=== PATIENT | female | born 2000 | race Caucasian/White ===

== ENCOUNTER 2021-04-06 15:43 | Emergency (ER) | payer OTHER ==
[~2021-04-06] VITALS: Ht 154.9 cm; Wt 54.4 kg
[2021-04-06] MEDS ORDERED: SODIUM CHLORIDE 0.9% 1,000 ML IVB ONE (16:00)
[2021-04-06 16:26] LABS: Basophils # (auto) 0 10 ^3/uL (0-0.2); Basophils % (auto) 0.2 % (0.0-2.0); Eosinophils # (auto) 0 10 ^3/uL (0-0.8); Eosinophils % (auto) 0.5 % (0.0-7.0); Hematocrit 39.3 % (36.0-46.0); Hemoglobin 13.4 g/dL (12.2-16.2); Lymphocytes # (auto) 1.1 10 ^3/uL (0.4-5.4); Lymphocytes % (auto) 12.3 % (10.0-50.0); Mean Corpuscular Hemoglobin 32.2 pg (28.0-32.0); Mean Corpuscular Volume 94.8 fL (80.0-100.0); Monocytes # (auto) 0.4 10 ^3/uL (0-1.3); Monocytes % (auto) 5.1 % (0.0-12.0); Neutrophils % (auto) 81.9 % (37.0-80.0); Nucleated Red Blood Cells % 0.1 %; Red Blood Cells 4.15 10^6/uL (4.0-5.20); Red Cell Distribution Width 13.5 % (11.8-14.3); White Blood Cell 8.6 10^3/uL (4.4-10.8)
[2021-04-06 16:49] LABS: Acetaminophen < 2.0 ug/mL (10-30); Salicylate < 1.7 mg/dL (2.8-20.0)
[2021-04-06 16:50] LABS: Albumin 4.1 g/dL (3.4-5.0); BUN/Creatinine Ratio 27.5; Potassium 4.4 mmol/L (3.5-5.1)
[2021-04-06 16:52] LABS: Bilirubin, Total 0.4 mg/dL (0.2-1.0); Total Protein 7.3 g/dL (6.4-8.2)
[2021-04-06 18:13] LABS: Amphetamine Screen, Urine NEGATIVE (NEGATIVE); Barbiturate Scree,Urine NEGATIVE (NEGATIVE); Benzodiazephine Screen, Urine NEGATIVE (NEGATIVE); Cannabinoid Screen, Urine POSITIVE (NEGATIVE); Cocaine Screen, Urine NEGATIVE (NEGATIVE); Opiate Scree,Urine NEGATIVE (NEGATIVE); Phencyclidine Screen, Urine NEGATIVE (NEGATIVE)
[2021-04-06] MEDS ORDERED: ONDANSETRON HCL 4 MG/2 ML VIAL IV ONE (18:45)
[2021-04-07] MEDS ORDERED: ACETAMINOPHEN 325 MG TAB PO ONE ×3 (09:45→17:45)
[2021-04-07 20:22] VITALS: BP 113/66
== END 2021-04-06 17:12 | disposition short-term general hospital (02) ==
LOC: EDBD 15:43 → ER 15:43
DX: T43.212A Poisoning by selective serotonin and norepinephrine reuptake inhibitors, intentional self-harm, initial encounter (principal); F17.210 Nicotine dependence, cigarettes, uncomplicated; F12.10 Cannabis abuse, uncomplicated; F15.10 Other stimulant abuse, uncomplicated; F14.10 Cocaine abuse, uncomplicated; Y92.89 Other specified places as the place of occurrence of the external cause
CPT/HCPCS: 36415; 80053; 80307; 80320; 80329; 81025; 85025; 87426; 93005; 96361; 96374; 99285; J2405; J7030

== ENCOUNTER 2021-06-21 09:55 | Emergency (ER) | payer OTHER ==
[~2021-06-21] VITALS: Ht 152.4 cm; Wt 52.2 kg
[2021-06-21] MEDS ORDERED: ONDANSETRON HCL 4 MG/2 ML VIAL IV ONE (10:30)
[2021-06-21 10:44] LABS: Basophils # (auto) 0 10 ^3/uL (0-0.2); Basophils % (auto) 0.2 % (0.0-2.0); Eosinophils # (auto) 0 10 ^3/uL (0-0.8); Hematocrit 45.9 % (36.0-46.0); Hemoglobin 15.6 g/dL (12.2-16.2); Lymphocytes # (auto) 0.8 10 ^3/uL (0.4-5.4); Mean Corpuscular Hgb Conc. 33.9 g/dL (32.0-36.0); Mean Corpuscular Volume 94.4 fL (80.0-100.0); Monocytes # (auto) 0.4 10 ^3/uL (0-1.3); Monocytes % (auto) 3.8 % (0.0-12.0); Neutrophils # (auto) 8.3 10 ^3/uL (1.6-8.6); Red Blood Cells 4.86 10^6/uL (4.0-5.20); Red Cell Distribution Width 13.2 % (11.8-14.3); White Blood Cell 9.4 10^3/uL (4.4-10.8)
[2021-06-21] MEDS ORDERED: SODIUM CHLORIDE 0.9% 1,000 ML IV ONE (10:45)
[2021-06-21 11:29] LABS: Albumin 4.6 g/dL (3.4-5.0); Anion Gap 11 (5-15); Blood Urea Nitrogen 17 mg/dL (7-18); Calcium 9.9 mg/dL (8.5-10.1); Carbon Dioxide 20 mmol/L (21-32); Chloride 104 mmol/L (98-107); Glucose 98 mg/dL (74-106); Potassium 3.9 mmol/L (3.5-5.1); Sodium 135 mmol/L (136-145)
[2021-06-21 11:35] LABS: Alanine Aminotransferase 18 U/L (13-56); Alkaline Phosphatase 75 U/L (45-117); Aspartate Aminotransferase 19 U/L (15-37); BUN/Creatinine Ratio 21.3; Bilirubin, Total 0.6 mg/dL (0.2-1.0); GFR African American 118 mL/min; GFR Non-African American 97 mL/min; Total Protein 9.1 g/dL (6.4-8.2)
[2021-06-21 12:57] LABS: Urine Bacteria FEW /hpf (None Seen); Urine Blood Negative /uL (Negative); Urine Mucus FEW (None Seen); Urine Specific Gravity 1.032 (1.001-1.035); Urine WBC 63 /hpf (0 - 5)
[2021-06-21] MEDS ORDERED: CEPH-509 PO (14:31)
[2021-06-21 14:47] VITALS: BP 116/55
[2021-06-21 15:13] LABS: Amphetamine Screen, Urine POSITIVE (NEGATIVE); Barbiturate Scree,Urine NEGATIVE (NEGATIVE); Benzodiazephine Screen, Urine NEGATIVE (NEGATIVE); Cannabinoid Screen, Urine POSITIVE (NEGATIVE); Cocaine Screen, Urine NEGATIVE (NEGATIVE); Opiate Scree,Urine NEGATIVE (NEGATIVE); Phencyclidine Screen, Urine NEGATIVE (NEGATIVE)
== END 2021-06-21 14:28 | disposition home or self-care (01) ==
LOC: ER 09:55
DX: O26.891 Other specified pregnancy related conditions, first trimester (principal); O21.9 Vomiting of pregnancy, unspecified; O99.321 Drug use complicating pregnancy, first trimester; F12.10 Cannabis abuse, uncomplicated; F15.10 Other stimulant abuse, uncomplicated; F14.10 Cocaine abuse, uncomplicated; Z3A.01 Less than 8 weeks gestation of pregnancy
CPT/HCPCS: 36415; 76801; 76817; 80053; 80307; 81001; 84484; 84702; 85025; 96361; 96374; 99285; J2405; J7030

== ENCOUNTER → 2023-10-11 | Outpatient (CLI) | payer MEDICAID, OTHER ==
[~2023-10-11] MED LIST: CEPH-509 PO
[2023-10-11 10:47] LABS: Basophils # (auto) 0 10 ^3/uL (0-0.2); Basophils % (auto) 0.5 % (0.0-2.0); Eosinophils # (auto) 0.1 10 ^3/uL (0-0.8); Eosinophils % (auto) 0.6 % (0.0-7.0); Hematocrit 41.8 % (36.0-46.0); Hemoglobin 14.2 g/dL (12.2-16.2); Lymphocytes # (auto) 2.4 10 ^3/uL (0.4-5.4); Lymphocytes % (auto) 26.1 % (10.0-50.0); Mean Corpuscular Hemoglobin 32.1 pg (28.0-32.0); Mean Corpuscular Hgb Conc. 33.9 g/dL (32.0-36.0); Mean Corpuscular Volume 94.7 fL (80.0-100.0); Monocytes # (auto) 0.6 10 ^3/uL (0-1.3); Monocytes % (auto) 6.1 % (0.0-12.0); Neutrophils # (auto) 6.2 10 ^3/uL (1.6-8.6); Neutrophils % (auto) 66.7 % (37.0-80.0); Red Blood Cells 4.42 10^6/uL (4.0-5.20); Red Cell Distribution Width 13.3 % (11.8-14.3); White Blood Cell 9.3 10^3/uL (4.4-10.8)
[2023-10-11 12:00] LABS: Amphetamine Screen, Urine Neg (NEGATIVE)
[2023-10-11 12:01] LABS: Barbiturate Scree,Urine Neg (NEGATIVE)
[2023-10-11 12:02] LABS: Benzodiazephine Screen, Urine Neg (NEGATIVE); Cocaine Screen, Urine Neg (NEGATIVE); Opiate Scree,Urine Neg (NEGATIVE); Phencyclidine Screen, Urine Neg (NEGATIVE)
[2023-10-11 12:03] LABS: Cannabinoid Screen, Urine Neg (NEGATIVE)
[2023-10-11 12:04] LABS: Albumin 4.4 g/dL (3.2-4.8); Alkaline Phosphatase 44 U/L (46-116); Anion Gap 8 (5-15); Aspartate Aminotransferase 11 U/L (13-40); BUN/Creatinine Ratio 15.6 (10.0-20.0); Blood Urea Nitrogen 7 mg/dL (9-23); Carbon Dioxide 23 mmol/L (20-30); Chloride 103 mmol/L (98-107); Glucose 83 mg/dL (74-106); LDL Cholesterol 119 mg/dL (< 100); Sodium 134 mmol/L (136-145); Triglycerides 115 mg/dL (< 150)
[2023-10-11 12:05] LABS: Bilirubin, Total 0.3 mg/dL (0.2-1.0); Cholesterol 171 mg/dL (< 200); HDL Cholesterol 54 mg/dL (40-59); Total Protein 6.9 g/dL (5.7-8.2)
[2023-10-11 12:07] LABS: Thyroid Stimulating Hormone 1.76 uIU/mL (0.55-4.78)
[2023-10-11 12:09] LABS: Alanine Aminotransferase < 9 U/L (7-40)
[2023-10-11 12:15] LABS: Beta HCG, Quantitative > 200000.0 mIU/mL (1.5-4.2)
[2023-10-12 07:07] LABS: RPR Non Reactive (Non Reactive)
[2023-10-12 10:07] LABS: Varicella Zoster IgG Antibody 736 index (Immune >165)
[2023-10-12 12:06] LABS: Chlamydia Trachomatis, NAA Negative (Negative); Neisseria gonorrhoeae, NAA Negative (Negative)
[2023-10-14 04:06] LABS: QuantiFERON-TB Gold Plus Negative (Negative)
== END | disposition home or self-care (01) ==
LOC: LAB 10:11
PROVIDERS: ATTEND Obstetrics & Gynecology
DX: Z34.80 Encounter for supervision of other normal pregnancy, unspecified trimester (principal); Z31.430 Encounter of female for testing for genetic disease carrier status for procreative management; Z36.0 Encounter for antenatal screening for chromosomal anomalies; Z3A.00 Weeks of gestation of pregnancy not specified; N39.0 Urinary tract infection, site not specified
CPT/HCPCS: 36415; 80053; 80061; 80307; 83036; 84439; 84443; 84702; 85025; 86592; 86703; 86787; 86850; 86900; 86901; 87086; 87340; 87902

== ENCOUNTER → 2024-01-22 | Outpatient (CLI) | payer MEDICAID ==
[2024-01-22 07:31] LABS: Basophils # (auto) 0 10 ^3/uL (0-0.2); Basophils % (auto) 0.4 % (0.0-2.0); Eosinophils # (auto) 0.1 10 ^3/uL (0-0.8); Hematocrit 37.6 % (36.0-46.0); Hemoglobin 12.9 g/dL (12.2-16.2); Lymphocytes # (auto) 1.7 10 ^3/uL (0.4-5.4); Lymphocytes % (auto) 21.5 % (10.0-50.0); Mean Corpuscular Hemoglobin 33.9 pg (28.0-32.0); Mean Corpuscular Hgb Conc. 34.3 g/dL (32.0-36.0); Mean Corpuscular Volume 98.8 fL (80.0-100.0); Monocytes # (auto) 0.6 10 ^3/uL (0-1.3); Monocytes % (auto) 7.3 % (0.0-12.0); Neutrophils # (auto) 5.5 10 ^3/uL (1.6-8.6); Neutrophils % (auto) 69.8 % (37.0-80.0); Platelet Count (auto) 219 10^3/uL (140-450); White Blood Cell 7.9 10^3/uL (4.4-10.8)
[2024-01-22 07:41] LABS: Albumin 4.2 g/dL (3.2-4.8); Alkaline Phosphatase 55 U/L (46-116); Anion Gap 6 (5-15); Aspartate Aminotransferase 10 U/L (13-40); BUN/Creatinine Ratio 10.4 (10.0-20.0); Blood Urea Nitrogen 5 mg/dL (9-23); Calcium 9.3 mg/dL (8.7-10.4); Carbon Dioxide 23 mmol/L (20-31); Chloride 106 mmol/L (98-107); Glucose 83 mg/dL (74-106); Sodium 135 mmol/L (136-145); Total Protein 6.6 g/dL (5.7-8.2)
[2024-01-22 07:44] LABS: Alanine Aminotransferase < 9 U/L (7-40)
[2024-01-22 07:57] LABS: Bilirubin, Total 0.3 mg/dL (0.2-1.0)
[2024-01-23 07:07] LABS: RPR Non Reactive (Non Reactive)
[2024-01-24 02:06] LABS: Chlamydia Trachomatis, NAA Negative (Negative); Neisseria gonorrhoeae, NAA Negative (Negative)
== END | disposition home or self-care (01) ==
LOC: LAB 06:14
PROVIDERS: ATTEND Obstetrics & Gynecology
DX: Z34.80 Encounter for supervision of other normal pregnancy, unspecified trimester (principal); Z3A.00 Weeks of gestation of pregnancy not specified
CPT/HCPCS: 36415; 80053; 82951; 83036; 85025; 86592; 86850; 86900; 86901

== ENCOUNTER 2024-02-11 08:42 | Emergency (ER) | payer MEDICAID ==
[~2024-02-11] VITALS: Ht 152.4 cm; Wt 75.0 kg
[2024-02-11 09:07] VITALS: RESP 20
[2024-02-11] MEDS: ACETAMINOPHEN 325 MG TAB PO ONE (09:08)
[2024-02-11 09:46] LABS: Alanine Aminotransferase 11 U/L (7-40); Albumin 4.2 g/dL (3.2-4.8); Alkaline Phosphatase 69 U/L (46-116); Anion Gap 6 (5-15); Aspartate Aminotransferase 14 U/L (13-40); BUN/Creatinine Ratio 15.6 (10.0-20.0); Bilirubin, Total 0.3 mg/dL (0.2-1.0); Blood Urea Nitrogen 7 mg/dL (9-23); Calcium 9.7 mg/dL (8.7-10.4); Carbon Dioxide 22 mmol/L (20-31); Chloride 108 mmol/L (98-107); Glucose 89 mg/dL (74-106); Potassium 3.8 mmol/L (3.5-5.1); Sodium 136 mmol/L (136-145); Total Protein 7.1 g/dL (5.7-8.2)
[2024-02-11] MEDS: ALBUTEROL SULF 2.5 MG/0.5ML(0.5%) NEB SOLN NEB ONE (09:51)
[2024-02-11 10:53] LABS: Basophils # (auto) 0 10 ^3/uL (0-0.2); Basophils % (auto) 0.4 % (0.0-2.0); Eosinophils # (auto) 0.2 10 ^3/uL (0-0.8); Eosinophils % (auto) 1.7 % (0.0-7.0); Hematocrit 38.4 % (36.0-46.0); Lymphocytes # (auto) 1.7 10 ^3/uL (0.4-5.4); Lymphocytes % (auto) 16.4 % (10.0-50.0); Mean Corpuscular Hemoglobin 33.3 pg (28.0-32.0); Mean Corpuscular Hgb Conc. 33.8 g/dL (32.0-36.0); Mean Corpuscular Volume 98.7 fL (80.0-100.0); Monocytes # (auto) 0.7 10 ^3/uL (0-1.3); Monocytes % (auto) 6.8 % (0.0-12.0); Neutrophils # (auto) 7.8 10 ^3/uL (1.6-8.6); Neutrophils % (auto) 74.7 % (37.0-80.0); Platelet Count (auto) 238 10^3/uL (140-450); Red Blood Cells 3.89 10^6/uL (4.0-5.20); Red Cell Distribution Width 13.1 % (11.8-14.3); White Blood Cell 10.5 10^3/uL (4.4-10.8)
[2024-02-11 12:46] LABS: COVID19 ANTIGEN SOFIA FIA NEGATIVE (NEGATIVE)
[2024-02-11 13:10] VITALS: BP 125/76; PULSE 102; RESP 17; TEMP 97.7; O2SAT 95
[2024-02-11] MEDS ORDERED: ACET650T12 PO (13:21)
== END 2024-02-11 13:46 | disposition home or self-care (01) ==
LOC: ER 08:42
DX: O26.893 Other specified pregnancy related conditions, third trimester (principal); R05.9 Cough, unspecified; R06.02 Shortness of breath; Z3A.30 30 weeks gestation of pregnancy; Z87.891 Personal history of nicotine dependence; Z79.899 Other long term (current) drug therapy; Z20.822 Contact with and (suspected) exposure to COVID-19
CPT/HCPCS: 36415; 71045; 80053; 84484; 87426; 93005; 94640

== ENCOUNTER 2024-03-26 09:08 | Observation (INO) | payer MEDICAID ==
[~2024-03-26 09:08] MED LIST changes: +ACET650T12 PO
--- NOTE | 2024-03-26 10:20 | DVH ---
BIOPHYSICAL PROFILE HISTORY: Decreased movement TECHNIQUE: Multiple transabdominal real-time grayscale sonographic images through the gravid uterus of the fetus with duplex Doppler color flow and M-mode spectral analysis FINDINGS: BIOPHYSICAL PROFILE: breathing score: 2 movement score: 2 tone score: 2 Quantitative CHRISTIAN score: 2 (CHRISTIAN: 12.4 Cm.) Total score: 8/8 Single live fetus in cephalic presentation. heart rate 142 beats per minute. Posterior placenta without previa or abruption IMPRESSION: 1. Biophysical profile score: 8/8 HS:Y
--- NOTE | 2024-03-26 10:34 | DVHDS2 ---
Physician Discharge Progress N Final Diagnosis: cramping Operations or Procedures: Operations or Procedures nst,sono Condition on Discharge: Good Disposition: Home Discharge Instructions: Diet: Regular Activity: No Restrictions, As Tolerated Follow Up/Referral: Follow up as scheduled with Dr. Galeano on SundayMarch 31. Medications: na Follow Up Care: Specialist: 1w Discharge Statement: "Patient was advised to return to the ER or call 911 if any headaches, dizziness, shortness of breath, chest pain, abdominal pain, bleeding, fevers, or worsening of medical condition. Patient was counseled about treatment plan, medications, possible side effects, patientverbalized understanding. All questions were answered to the best of my ability. This discharge took greater then 30 minutes in planning, reviewing documentation, counseling the patient, and discussing with other team members." CALEB SON DO Mar 26, 2024 10:34
== END 2024-03-26 10:45 | disposition home or self-care (01) ==
LOC: LDRP 09:08 → UNDOADMOB 09:08 → LDRP 09:29
PROVIDERS: ADMIT Obstetrics & Gynecology; ATTEND Obstetrics & Gynecology
DX: O36.8130 Decreased fetal movements, third trimester, not applicable or unspecified (principal); O21.2 Late vomiting of pregnancy; O26.892 Other specified pregnancy related conditions, second trimester; R51.9 Headache, unspecified; H53.8 Other visual disturbances; Z98.890 Other specified postprocedural states; Z79.899 Other long term (current) drug therapy; Z3A.36 36 weeks gestation of pregnancy
CPT/HCPCS: 59025; 76818; 81002; 94760; G0378

== ENCOUNTER 2024-04-07 09:02 | Observation (INO) | payer MEDICAID ==
[~2024-04-07] VITALS: Ht 152.4 cm; Wt 79.4 kg
--- NOTE | 2024-04-07 10:31 | DVH ---
Procedure: US BIOPHYSICAL PROFILE 04/07/2024 09:47 AM Indication: Leaking of fluid Comparison: US BIOPHYSICAL PROFILE on DOS: 03/26/24 Technique: Sonogram of gravid uterus utilizing grayscale and color techniques. FINDINGS: Single living intrauterine gestation. Presentation: Cephalic Placenta: Posterior, grade 2 with no evidence for previa or abruption heart rate: 140 bpm CHRISTIAN: 9.6 cm, DVP: 6.6 cm Maternal cervix: Not visualized Biophysical Profile: breathing score: 2 movement score: 2 tone: 2 Quantitative CHRISTIAN score: 2 Total score: 8/8 IMPRESSION: 1. Single living as above. 2. Biophysical profile score: 8/8.
--- NOTE | 2024-04-07 10:55 | DVHDS2 ---
Physician Discharge Progress N Final Diagnosis: Term IUP 38 wk, SROM ruled out Operations or Procedures: Operations or Procedures NST/BPP/CHRISTIAN all WNL CHRISTIAN 9.6 cm Fern test neg, no pooling, nitrazine neg Condition on Discharge: Stable Disposition: Home Discharge Instructions: Diet: Regular Activity: Light activity Follow Up/Referral: as scheduled in OB clinic 1x/week until delivered Medications: N/A Follow Up Care: Discharge Statement: "Patient was advised to return to the ER or call 911 if any headaches, dizziness, shortness of breath, chest pain, abdominal pain, bleeding, fevers, or worsening of medical condition. Patient was counseled about treatment plan, medications, possible side effects, patientverbalized understanding. All questions were answered to the best of my ability. This discharge took greater then 30 minutes in planning, reviewing documentation, counseling the patient, and discussing with other team members." KAYLEE ARRINGTON DO Apr 07, 2024 10:55
[2024-04-07 11:23] LABS: Fern Testing Negative
== END 2024-04-07 11:43 | disposition home or self-care (01) ==
LOC: UNDOADMOB 09:02 → LDRP 09:02 → UNDODISOB 11:43
PROVIDERS: ADMIT Obstetrics & Gynecology; ATTEND Obstetrics & Gynecology
DX: O62.9 Abnormality of forces of labor, unspecified (principal); Z3A.38 38 weeks gestation of pregnancy; Z79.899 Other long term (current) drug therapy; Z98.890 Other specified postprocedural states
CPT/HCPCS: 59025; 76818; 81002; 94760; G0378; Q0114

== ENCOUNTER 2024-04-11 08:52 | Observation (INO) | payer MEDICAID ==
--- NOTE | 2024-04-12 10:36 | DVHDS2 ---
Physician Discharge Progress N Final Diagnosis: LABOR CHECK Operations or Procedures: Operations or Procedures NST,SONO Condition on Discharge: Good Disposition: Home Discharge Instructions: Diet: Regular Activity: No Restrictions, As Tolerated Medications: NA Follow Up Care: Specialist: 2D Discharge Statement: "Patient was advised to return to the ER or call 911 if any headaches, dizziness, shortness of breath, chest pain, abdominal pain, bleeding, fevers, or worsening of medical condition. Patient was counseled about treatment plan, medications, possible side effects, patientverbalized understanding. All questions were answered to the best of my ability. This discharge took greater then 30 minutes in planning, reviewing documentation, counseling the patient, and discussing with other team members." CALEB SON DO Apr 12, 2024 10:36
== END 2024-04-11 10:25 | disposition home or self-care (01) ==
LOC: LDRP 08:52 → UNDOADMOB 08:52 → LDRP 09:02
PROVIDERS: ADMIT Obstetrics & Gynecology; ATTEND Obstetrics & Gynecology
DX: O62.9 Abnormality of forces of labor, unspecified (principal); O99.891 Other specified diseases and conditions complicating pregnancy; M54.9 Dorsalgia, unspecified; O21.9 Vomiting of pregnancy, unspecified; Z3A.38 38 weeks gestation of pregnancy; Z87.891 Personal history of nicotine dependence
CPT/HCPCS: 59025; 81002; 94760; G0378

== ENCOUNTER 2024-04-18 22:03 | Observation (INO) | payer MEDICAID ==
--- NOTE | 2024-04-19 00:51 | DVHDS2 ---
Physician Discharge Progress N Final Diagnosis: yarelis aparicio contractions Operations or Procedures: Operations or Procedures S: 23yo IUP@39+wks presents to OB triage with c/o UCs q7-8 min. Denies LOF/VB/HUNTER/vision changes/RUQ pain. Endorses +FM. PNC with Dr. Galeano, uncomplicated. O: VSS UA wnl NST reactive x2 SVE by RN: /-2 and SVE unchanged after 1 hour of ambulation A: 23yo IUP@39+wks [place] aparicio contractions P: D/C home kick counts and Preeclampsia warning signs reviewed. PTL precautions given and when to return to the hospital. Recommended miles circuit at home and eat/shower/rest. Condition on Discharge: Stable Disposition: Home Discharge Instructions: Diet: Regular Activity: No Restrictions, As Tolerated Follow Up/Referral: f/u on 04/21/24 at 40 wks for NST/BPP for term Medications: see med list Follow Up Care: Specialist: f/u on 04/21/24 at 40 wks for NST/BPP for term Discharge Statement: "Patient was advised to return to the ER or call 911 if any headaches, dizziness, shortness of breath, chest pain, abdominal pain, bleeding, fevers, or worsening of medical condition. Patient was counseled about treatment plan, medications, possible side effects, patientverbalized understanding. All questions were answered to the best of my ability. This discharge took greater then 30 minutes in planning, reviewing documentation, counseling the patient, and discussing with other team members." REGINO CRUZ CNM Apr 19, 2024 00:51
== END 2024-04-19 01:41 | disposition home or self-care (01) ==
LOC: LDRP 22:03
PROVIDERS: ADMIT Obstetrics & Gynecology; ATTEND Obstetrics & Gynecology
DX: O47.1 False labor at or after 37 completed weeks of gestation (principal); O99.891 Other specified diseases and conditions complicating pregnancy; M54.9 Dorsalgia, unspecified; Z3A.39 39 weeks gestation of pregnancy; Z87.891 Personal history of nicotine dependence; Z79.899 Other long term (current) drug therapy
CPT/HCPCS: 59025; 81002; 94760; G0378

== ENCOUNTER 2024-04-21 06:24 | Observation (INO) | payer MEDICAID ==
--- NOTE | 2024-04-21 09:46 | DVH ---
CLINICAL HISTORY: term . COMPARISON: US BIOPHYSICAL PROFILE on DOS: 04/07/24, US BIOPHYSICAL PROFILE on DOS: 03/26/24 TECHNIQUE: biophysical profile was performed. Transabdominal sonographic images of the fetus we re obtained. FINDINGS: The fetus is in cephalic position. heart rate measures 164 BPM. Amniotic fluid index measures 15.3 cm. The placenta is posterior in position with no evidence of previa or abruptioni. BPP profile is an overall score of 8/8, with 2/2 points for breathing, with at least one episode of breathing over a 30 second duration during a 30 minute observation, 2/2 points for m ovements, with 3 or more discrete body or limb movements, 2/2 points for tone, with one or more episodes of extremity extension with return to flexion, or opening and closing of hand, and 2/ 2 points for amniotic fluid, with at least 1 pocket of amniotic fluid that measures 2 cm in 2 perpend icular planes. IMPRESSION: BPP score of 8/8.
--- NOTE | 2024-04-21 14:43 | DVHDS2 ---
Physician Discharge Progress N Final Diagnosis: Term IUP. 40 wk Encounter for surveillance Operations or Procedures: Operations or Procedures NST/BPP/CHRISTIAN all WNL Condition on Discharge: Stable Disposition: Home Discharge Instructions: Diet: Regular Activity: No Restrictions, As Tolerated Follow Up/Referral: as scheduled Medications: N/A Follow Up Care: Discharge Statement: "Patient was advised to return to the ER or call 911 if any headaches, dizziness, shortness of breath, chest pain, abdominal pain, bleeding, fevers, or worsening of medical condition. Patient was counseled about treatment plan, medications, possible side effects, patientverbalized understanding. All questions were answered to the best of my ability. This discharge took greater then 30 minutes in planning, reviewing documentation, counseling the patient, and discussing with other team members." KAYLEE ARRINGTON DO Apr 21, 2024 14:43
== END 2024-04-21 10:33 | disposition home or self-care (01) ==
LOC: UNDOADMOB 08:44 → LDRP 08:44
PROVIDERS: ADMIT Obstetrics & Gynecology; ATTEND Obstetrics & Gynecology
DX: O48.0 Post-term pregnancy (principal); O99.891 Other specified diseases and conditions complicating pregnancy; M54.9 Dorsalgia, unspecified; Z98.890 Other specified postprocedural states; Z79.899 Other long term (current) drug therapy; Z3A.40 40 weeks gestation of pregnancy
CPT/HCPCS: 59025; 76818; 81002; 94760; G0378

== ENCOUNTER 2024-04-23 06:11 | Observation (INO) | payer MEDICAID ==
[2024-04-23] MEDS ORDERED: PREN1TAB71 OR (08:32)
--- NOTE | 2024-04-23 08:43 | DVH ---
Procedure: US BIOPHYSICAL PROFILE 04/23/2024 08:23 AM Indication: Term Comparison: US BIOPHYSICAL PROFILE on DOS: 04/21/24, US BIOPHYSICAL PROFILE on DOS: 04/07/24, US BIOPHY SICAL PROFILE on DOS: 03/26/24 Technique: Sonogram of gravid uterus utilizing grayscale and color techniques. FINDINGS: Single living intrauterine gestation. Presentation: Cephalic Placenta: Posterior-fundal, grade 3 heart rate: 133 bpm CHRISTIAN: 14.5 cm, DVP: 4.6 cm Maternal cervix: Not visualized Biophysical Profile: breathing score: 2 movement score: 2 tone: 2 Quantitative CHRISTIAN score: 2 Total score: 8/8 IMPRESSION: 1. Single living as above. 2. Biophysical profile score: 8/8.
--- NOTE | 2024-04-23 18:10 | DVHDS2 ---
Physician Discharge Progress N Final Diagnosis: postdates Operations or Procedures: Operations or Procedures nst,sono Condition on Discharge: Good Disposition: Home Discharge Instructions: Diet: Regular Activity: No Restrictions, As Tolerated Medications: na Follow Up Care: Specialist: 2d Discharge Statement: "Patient was advised to return to the ER or call 911 if any headaches, dizziness, shortness of breath, chest pain, abdominal pain, bleeding, fevers, or worsening of medical condition. Patient was counseled about treatment plan, medications, possible side effects, patientverbalized understanding. All questions were answered to the best of my ability. This discharge took greater then 30 minutes in planning, reviewing documentation, counseling the patient, and discussing with other team members." CALEB SON DO Apr 23, 2024 18:10
== END 2024-04-23 09:24 | disposition home or self-care (01) ==
LOC: LDRP 07:55
PROVIDERS: ADMIT Obstetrics & Gynecology; ATTEND Obstetrics & Gynecology
DX: O48.0 Post-term pregnancy (principal); Z98.890 Other specified postprocedural states; Z79.899 Other long term (current) drug therapy; Z3A.40 40 weeks gestation of pregnancy
CPT/HCPCS: 59025; 76818; 81002; G0378

== ENCOUNTER 2024-04-25 08:40 | Observation (INO) | payer MEDICAID ==
[~2024-04-25 08:40] MED LIST changes: +PREN1TAB71 OR
--- NOTE | 2024-04-25 10:06 | DVH ---
BIOPHYSICAL PROFILE HISTORY: Term Gestation Comparison Study: 04/23/2024 TECHNIQUE: Multiple real-time grayscale sonographic images through the gravid uterus of the fetus wi th duplex Doppler color flow and M-mode spectral analysis FINDINGS: BIOPHYSICAL PROFILE: breathing score: 2 movement score: 2 tone score: 2 Quantitative CHRISTIAN score: 2 (CHRISTIAN: 10.5 Cm.) Total score: 8 The cervix is not visualized Single live fetus in cephalic presentation. heart rate 142 beats per minute. Grade 3, posterior /fundal placenta without previa or abruption IMPRESSION: Biophysical profile score: 8
--- NOTE | 2024-04-25 10:38 | DVHDS2 ---
Physician Discharge Progress N Final Diagnosis: Term IUP 40+ weeks Secondary Diagnosis: Encounter for surveillance Operations or Procedures: Operations or Procedures NST/BPP CHRISTIAN all WNL Condition on Discharge: Stable Disposition: Home Discharge Instructions: Diet: Regular Activity: No Restrictions, As Tolerated Follow Up/Referral: as scheduled Medications: N/A Follow Up Care: Discharge Statement: "Patient was advised to return to the ER or call 911 if any headaches, di zziness, shortness of breath, chest pain, abdominal pain, bleeding, fevers, or worsening of medical condition. Patient was counseled about treatment plan, medications, possible side effects, patientverbalized understanding. All questions were answered to the best of my ability. This discharge took greater then 30 minutes in planning, reviewing documentation, counseling the patient, and discussing with other team members." KAYLEE ARRINGTON DO Apr 25, 2024 10:38
== END 2024-04-25 10:08 | disposition home or self-care (01) ==
LOC: UNDOADMOB 08:40 → LDRP 08:40
PROVIDERS: ADMIT Obstetrics & Gynecology; ATTEND Obstetrics & Gynecology
DX: O48.0 Post-term pregnancy (principal); Z3A.40 40 weeks gestation of pregnancy; Z87.891 Personal history of nicotine dependence; Z79.899 Other long term (current) drug therapy
CPT/HCPCS: 59025; 76818; 81002; 94760; G0378

== ENCOUNTER 2024-04-26 20:29 | Observation (INO) | payer MEDICAID ==
--- NOTE | 2024-04-27 10:01 | DVHDS2 ---
Physician Discharge Progress N Final Diagnosis: Term IUP , false labor Operations or Procedures: Operations or Procedures NST Labor check Condition on Discharge: Stable Disposition: Home Discharge Instructions: Diet: Regular Activity: No Restrictions, As Tolerated Follow Up/Referral: Return in a.m for scheduled labor induction, sooner if spont labor begins Medications: N/A Follow Up Care: Discharge Statement: "Patient was advised to return to the ER or call 911 if any headaches, dizziness, shortness of breath, chest pain, abdominal pain, bleeding, fevers, or worsening of medical condition. Patient was counseled about treatment plan, medications, possible side effects, patientverbalized understanding. All questions were answered to the best of my ability. This discharge took greater then 30 minutes in planning, reviewing documentation, counseling the patient, and discussing with other team members." KAYELE ARRINGTON DO Apr 27, 2024 10:01
== END 2024-04-26 22:15 | disposition home or self-care (01) ==
LOC: LDRP 20:29
PROVIDERS: ADMIT Obstetrics & Gynecology; ATTEND Obstetrics & Gynecology
DX: O48.0 Post-term pregnancy (principal); Z3A.40 40 weeks gestation of pregnancy; Z79.899 Other long term (current) drug therapy; Z98.890 Other specified postprocedural states
CPT/HCPCS: 59025; 81002; 94760; G0378

== ENCOUNTER 2024-04-27 02:57 | Inpatient (IN) | payer MEDICAID ==
[~2024-04-27] VITALS: Ht 152.4 cm; Wt 77.1 kg
[2024-04-27] MEDS ORDERED: TERBUTALINE SULFATE 1 MG/ML 1ML VIAL SC PRN (05:30)
[2024-04-27] MEDS ORDERED: LIDOCAINE 2%HCL (LOCAL ANESTH.) INJ 20ML MDV IJ PRN (05:30)
[2024-04-27 06:10] LABS: Urine Bacteria None Seen /hpf (None Seen)
[2024-04-27] MEDS: NALOXONE HCL 0.4 MG/ML VIAL IV ONE (06:15)
[2024-04-27] MEDS: ePHEDrine SULFATE 50 MG/ML AMP IV ONE (06:15)
[2024-04-27] MEDS: DERMOPLAST 60ML BOTTLE TOP PRN (06:18)
[2024-04-27] MEDS: WITCH HAZEL-GLYCERIN PAD TOP PRN (06:18)
[2024-04-27] MEDS: PHISODERM TOP SOLN 240ML BTL TOP PRN (06:18)
[2024-04-27 06:25] LABS: Basophils # (auto) 0.1 10 ^3/uL (0-0.2); Basophils % (auto) 0.6 % (0.0-2.0); Eosinophils # (auto) 0 10 ^3/uL (0-0.8); Eosinophils % (auto) 0.2 % (0.0-7.0); Hematocrit 38.5 % (36.0-46.0); Hemoglobin 13.2 g/dL (12.2-16.2); Lymphocytes # (auto) 1.2 10 ^3/uL (0.4-5.4); Lymphocytes % (auto) 13.4 % (10.0-50.0); Mean Corpuscular Hgb Conc. 34.3 g/dL (32.0-36.0); Mean Corpuscular Volume 96.3 fL (80.0-100.0); Monocytes # (auto) 0.5 10 ^3/uL (0-1.3); Monocytes % (auto) 5.9 % (0.0-12.0); Neutrophils # (auto) 7.3 10 ^3/uL (1.6-8.6); Neutrophils % (auto) 79.9 % (37.0-80.0); Nucleated Red Blood Cells % 0.1 %; Platelet Count (auto) 277 10^3/uL (140-450); Red Cell Distribution Width 13.3 % (11.8-14.3); White Blood Cell 9.1 10^3/uL (4.4-10.8)
[2024-04-27 06:36] LABS: Urine Blood Negative /uL (Negative); Urine Clarity Clear (Clear); Urine Color Light-Yellow (Yellow); Urine Mucus FEW (None Seen); Urine Protein, UAD Negative (Negative); Urine Squamous Epithelial Cell FEW /hpf (<5); Urine Urobilinogen Normal (Negative); Urine WBC <1 /hpf (0 - 5); Urine pH 6.5 (5.0-9.0)
[2024-04-27] MEDS: LACTATED RINGER'S 1,000 ML IV SCH (06:36)
[2024-04-27 06:44] LABS: Alanine Aminotransferase 24 U/L (7-40); Anion Gap 9 (5-15); BUN/Creatinine Ratio 18.5 (10.0-20.0); Blood Urea Nitrogen 10 mg/dL (9-23); Calcium 9.6 mg/dL (8.7-10.4); Carbon Dioxide 23 mmol/L (20-31); Chloride 103 mmol/L (98-107); Glucose 92 mg/dL (74-106); Potassium 3.8 mmol/L (3.5-5.1)
[2024-04-27 06:45] LABS: Aspartate Aminotransferase 20 U/L (13-40); Bilirubin, Total 0.3 mg/dL (0.2-1.0); Total Protein 6.9 g/dL (5.7-8.2)
[2024-04-27 06:59] LABS: INR 0.92 (0.9-1.15)
[2024-04-27 07:00] LABS: Amphetamine Screen, Urine Neg (NEGATIVE); Barbiturate Scree,Urine Neg (NEGATIVE); Benzodiazephine Screen, Urine Neg (NEGATIVE); Cannabinoid Screen, Urine Neg (NEGATIVE); Cocaine Screen, Urine Neg (NEGATIVE); Opiate Scree,Urine Neg (NEGATIVE); Phencyclidine Screen, Urine Neg (NEGATIVE)
[2024-04-27 07:01] LABS: Sodium 135 mmol/L (136-145)
[2024-04-27 07:02] LABS: Alkaline Phosphatase 142 U/L (46-116)
[2024-04-27] MEDS: LACT. RINGERS/OXYTOCIN 20UNITS 1,000 ML IV SCH (07:59)
[2024-04-27] MEDS: ROPIVACAINE HCL 200 ML ONE (08:30)
--- NOTE | 2024-04-27 08:44 | DVHHP2 ---
OB CC & HPI Date Date of Admission: Apr 27, 2024 Patient Identification: : 2 Para: 1 EGA: 40.6 Chief Complaints: Reason for admission: active labor History of Present Complaints 23y IUP 40.6 wk, presented in early labor, 3cm dilated Denies PROM or vaginal bleeding Good PNL care since 1st , uncomplicated. GBS neg EFW 7.5 pounds by clinical exam and last US at 39 wk Past Medical History Cardiac: No pertinent Hx Pulmonary: No pertinent Hx Central Nervous System: No pertinent Hx GI: No pertinent Hx Hemotology/Oncology: No pertinent Hx Hepatobiliary: No pertinent Hx Psychiatric: No pertinent Hx Musculoskeletal: No pertinent Hx Rheumotologic: No pertinent Hx Infectious Disease: No peritnent Hx ENT: No pertinent Hx Renal/: No pertinent Hx Endocrine: No pertinent Hx Dermatology: No pertinent Hx Past Surgical History: No pertinent Hx OB History OB History Care: Good Care Ultrasounds: Normal mid trimester US Obstetrical Complications: None Medical Complications: None Allergies: Coded Allergies: NO KNOWN ALLERGIES (Unverified , 04/07/24) Home Meds Active Scripts Acetaminophen (Acetaminophen Er) 650 Mg Tab, 650 MG PO TIDPRN PRN for 5 Days, #15 TAB Prov:MAXIMUS ZUÑIGA MD 02/11/24 Cephalexin (KEFLEX 500) 500 Mg Cap, 1 CAP PO TID for 7 Days, #21 CAP Prov:DAVID LUU MD 06/21/21 Reported Medications Vit W/ Ferrous Fumara (PNV PLUS MULTIVI) Plus Tab, 1 OR, TAB 04/23/24 Current Medications Current Medications Medications (Trade) Dose Ordered Sig/Nohemi Route PRN Reason Start Time Stop Time Status Last Admin Lactated Ringer's 1,000 ml @ 125 mls/hr Q8H IV 04/27/24 05:30 04/27/24 06:40 Witch Fina (Tucks) 1 pad PRN PRN TOP PERINEAL AREA DISCOMFORT 04/27/24 05:30 04/27/24 06:18 Sodium Lauryl Sulfate (Phisoderm) 240 ml PRN PRN TOP PERINEAL AREA DISCOMFORT 04/27/24 05:30 04/27/24 06:18 Benzocaine (Dermoplast) 1 applic PRN PRN TOP PERINEAL AREA DISCOMFORT 04/27/24 05:30 04/27/24 06:18 Lidocaine HCl (Xylocaine) 40 ml ONCE PRN IJ PERINEAL AREA DISCOMFORT 04/27/24 05:30 Oxytocin 1,000 ml @ 6 ml/hr Q24H IV 04/27/24 07:00 04/27/24 07:59 Terbutaline Sulfate (Brethine Inj) 0.25 mg ONCE PRN SC Uterine tachysystole 04/27/24 05:30 Family & Social History Family/Social History Blood Type: A+ Rubella: immune RPR/VDRL: Negative GBS Status: Negative HBsAG: Negative Review of Systems Constitutional: No symptom reported Ears, Nose, & Throat: No symptom reported Eyes: No symptom reported Pulmonary/Respiratory: No symptom reported Cardiovascular: No symptom reported Gastrointestinal: No symptom reported Genitourinary: No symptom reported Musculoskeletal: No symptom reported Skin: No symptom reported Psychiatric: No symptom reported Endocrine: No symptom reported Hemotologic/Lymphatic: No symptom reported OB Admission Exam Physical Exam HEENT: TMs Normal, Fontanelles Normal, Nasal Mucosa Normal, Eyes non-injected, Oropharynx Normal, PERRLA, Moist Membranes, EOMI Heart: Rhythm Normal Lungs: Clear Abdomen: Gravid Extremities: Normal Reflexes: Normal Pelvic Exam: 5 Cervical Dilatation: 5cm Effacement: Other (80) Station: -2 Membranes: Ruptured (AROM) Amniotic Fluid: Clear Heart Rate: 140's Accelerations: Accelerations Present Decelerations: No Decelerations Short Term Variability: Present Neonatal Nurse Practitioner Variability: Average (6-25) Contractions on Admission: 6-10 Minutes Apart Intensity: Moderate OB Plan Plan Admitting Diagnosis: Term IUP 40.6 wk, Active Labor Categ 1 FHR pattern GBS neg Plan: Expectant Management Other Plan: s/p Amniotomy s/p epidural Pitocin augmentation , anticipated KAYLEE ARRINGTON DO Apr 27, 2024 08:43
--- NOTE | 2024-04-27 09:49 | LDN2 ---
Labor and Delivery Note Date 04/27/24 Age 23 2 Para 2 EGA 40+ Diagnosis Term , delivered Vaginal Delivery: VTX Vacuum Assisted: No Placenta: Spontaneous Sex: Male Weight Pending Apgars 8/8 Amniotic Fluid: Clear Anesthesia Epidural Episiotomy: No Repaired with N/A , no lacerations present EBL 100 mL Labs Laboratory Tests 10/11/23 10:32: Hepatitis B Surface Antigen Negative, HIV (1&2) Antibody Negative Blood Bank 04/27/24 05:54: Blood Type A POSITIVE Complications None KAYLEE ARRINGTON DO Apr 27, 2024 09:49
[2024-04-27] MEDS: LACT. RINGERS/OXYTOCIN 20UNITS 500 ML IV ONE ×2 (09:54→10:17)
[2024-04-27] MEDS ORDERED: ACETAMINOPHEN 325 MG TAB PO PRN (12:00)
[2024-04-27] MEDS ORDERED: ONDANSETRON ODT 4 MG TAB PO PRN (12:00)
[2024-04-27 15:30] VITALS: BP 107/65; PULSE 89; RESP 16; TEMP 97.6; O2SAT 99
[2024-04-27 19:00] VITALS: BP 103/71; PULSE 101; RESP 16; TEMP 98.2; O2SAT 99
[2024-04-27] MEDS: IBUPROFEN 600 MG TAB PO PRN (20:32)
[2024-04-27 23:00] VITALS: BP 117/70; PULSE 96; RESP 14; TEMP 98; O2SAT 100
[2024-04-28 03:00] VITALS: BP 110/68; PULSE 90; RESP 14; TEMP 98.4; O2SAT 100
[2024-04-28 04:42] LABS: Basophils # (auto) 0 10 ^3/uL (0-0.2); Basophils % (auto) 0.2 % (0.0-2.0); Eosinophils # (auto) 0.1 10 ^3/uL (0-0.8); Eosinophils % (auto) 1.3 % (0.0-7.0); Hematocrit 36.5 % (36.0-46.0); Hemoglobin 12.6 g/dL (12.2-16.2); Lymphocytes # (auto) 1.9 10 ^3/uL (0.4-5.4); Lymphocytes % (auto) 20.7 % (10.0-50.0); Mean Corpuscular Hemoglobin 32.8 pg (28.0-32.0); Mean Corpuscular Hgb Conc. 34.3 g/dL (32.0-36.0); Mean Corpuscular Volume 95.6 fL (80.0-100.0); Monocytes # (auto) 0.9 10 ^3/uL (0-1.3); Monocytes % (auto) 9.7 % (0.0-12.0); Neutrophils # (auto) 6.1 10 ^3/uL (1.6-8.6); Neutrophils % (auto) 68.1 % (37.0-80.0); Platelet Count (auto) 241 10^3/uL (140-450); Red Blood Cells 3.82 10^6/uL (4.0-5.20); Red Cell Distribution Width 13.4 % (11.8-14.3)
[2024-04-28] MEDS ORDERED: IBU600T PO (07:01)
[2024-04-28 07:30] VITALS: BP 107/73; PULSE 88; RESP 16; TEMP 97.7; O2SAT 96
--- NOTE | 2024-04-28 08:11 | DVHDS2 ---
Physician Discharge Progress N Final Diagnosis: Term delivered s/p Secondary Diagnosis: Induction of labor 40.6 wk IUP Operations or Procedures: Operations or Procedures Induction of labor w/ , uncomplicated Condition on Discharge: Stable Disposition: Home Discharge Instructions: Diet: Regular Activity: Light activity Follow Up/Referral: [address] Arrington Medications: Ibuprofen PRN pain Follow Up Care: Discharge Statement: "Patient was advised to return to the ER or call 911 if any headaches, dizziness, shortness of breath, chest pain, abdominal pain, bleeding, fevers, or worsening of medical condition. Patient was counseled about treatment plan, medications, possible side effects, patientverbalized understanding. All questions were answered to the best of my ability. This discharge took greater then 30 minutes in planning, reviewing documentation, counseling the patient, and discussing with other team members." KAYLEE ARRINGTON DO Apr 28, 2024 08:11
[2024-04-28 10:35] VITALS: BP 104/76; PULSE 89; RESP 18; TEMP 97.5; O2SAT 97
[2024-04-29 10:06] LABS: RPR Non Reactive (Non Reactive)
[2024-04-29 11:06] LABS: Rubella Antibodies, IgG 2.19 index (Immune >0.99)
== END 2024-04-28 13:12 | disposition home or self-care (01) | DRG 560 ==
LOC: LDRP 02:57 → OBSVTOIN 05:07 → LDRP 05:19
PROVIDERS: ADMIT Obstetrics & Gynecology; ATTEND Obstetrics & Gynecology
PROC: 10E0XZZ Delivery of Products of Conception, External Approach (ICD-10-PCS; principal; 2024-04-27)
PROC: 3E0R3BZ Introduction of Anesthetic Agent into Spinal Canal, Percutaneous Approach (ICD-10-PCS; 2024-04-27)
PROC: 00HU33Z Insertion of Infusion Device into Spinal Canal, Percutaneous Approach (ICD-10-PCS; 2024-04-27)
DX: O48.0 Post-term pregnancy (principal); Z37.0 Single live birth; Z3A.40 40 weeks gestation of pregnancy
CPT/HCPCS: 36415; 59025; 59409; 62282; 80053; 80307; 81001; 81002; 85025; 85610; 85730; 86592; 86762; 86780; 86803; 86850; 86900; 86901; 94760; 96361; 96365; 96366; G0378; J2590